=== PATIENT | male | born 1960 | race Caucasian/White ===

== ENCOUNTER → 2019-07-18 | Day surgery (SDC) | payer MEDICARE ==
[~2019-07-18] MED LIST: Lactated Ringers 1,000 ML IV SCH; Midazolam 1 MG/ML 2 ML SDV IV ONE; Phenylephrine 1% 10 MG/ML SDV IV ONE; Propofol 200 MG/20 ML SDV IV ONE; fentaNYL 100 MCG/2 ML SDV IV ONE
--- NOTE | 2019-07-18 16:07 | OR ---
DATE OF OPERATION: 07/18/2019 PREOPERATIVE DIAGNOSIS: 1. ABNORMAL CT. 2. FAMILY HISTORY OF COLON CANCER. POSTOPERATIVE DIAGNOSIS: 1. ABNORMAL CT. 2. FAMILY HISTORY OF COLON CANCER. SURGEON: Brenden Madrigal MD PROCEDURE: DIAGNOSTIC COLONOSCOPY WITH FORCEPS POLYPECTOMY X3. ANESTHESIA: MAC. COMPLICATIONS: None. SPECIMEN: Tubular adenomas x3, see report, all approximately 0.5 cm, slightly larger. FINDINGS: 1. Full-length diagnostic colonoscopy. 2. No gross cecal abnormalities visualized. 3. Tubular adenomas x3, all slightly greater than 0.5 cm. RECOMMENDATIONS: Followup colonoscopy in 3 years. INDICATIONS: The patient has a family history of colon cancer. He has been having some occasional bloody stools and has an abnormal CT scan of a possible soft tissue lesion near the cecum. Dr. Valdez sent him for diagnostic scope. DESCRIPTION OF PROCEDURE: The patient was prepped and draped, placed in the left lateral decubitus position. A lubricated Olympus colonoscope was inserted and easily advanced to the cecum. The patient has a very long tortuous colon, but the scope does pass quite simply. We were able to get down right up along the ileocecal valve. It was difficult due to the length of his colon and the tortuosity to get deep into the cecal pouch, but no gross visual abnormalities could be seen. We were able to irrigate the area nicely. Upon withdrawal, the cecum and most of the ascending colon appeared benign. At its most distal portion prior to the hepatic flexure, the patient had a 0.5 cm tubular adenoma removed with a snare and suctioned into polyp trap #1. The rest of the transverse and descending colons were completely unremarkable. Most of the sigmoid colon was benign. In the rectosigmoid junction, another probably 7 to 8 mm tubular adenoma was seen and removed with the snare, suctioned into polyp trap #2. A 3rd polyp was in the proximal rectal vault, also removed with a snare and suctioned into polyp trap #3. Retroflexion showed no perianal lesions. Air was then suctioned, scope removed without complication. KENJI/ROMEL /[id number]
== END ==
LOC: CC.SDS 09:45
PROVIDERS: ATTEND Family Medicine
DX: D12.3 Benign neoplasm of transverse colon (principal); D12.7 Benign neoplasm of rectosigmoid junction; K62.1 Rectal polyp; Q43.8 Other specified congenital malformations of intestine; F41.9 Anxiety disorder, unspecified; F32.9 Major depressive disorder, single episode, unspecified; I10 Essential (primary) hypertension; E78.5 Hyperlipidemia, unspecified; E11.9 Type 2 diabetes mellitus without complications; Z80.0 Family history of malignant neoplasm of digestive organs; Z88.8 Allergy status to other drugs, medicaments and biological substances; Z98.890 Other specified postprocedural states; Z79.899 Other long term (current) drug therapy
CPT/HCPCS: 00811; 45385; 88305; J2250; J2370; J2704; J3010; J7120